=== PATIENT | female | born 2005 | race African-American/Black ===

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

== ENCOUNTER 2025-08-02 19:20 | Emergency (ER) | payer OTHER, MEDICAID, SELFPAY ==
[2025-08-02 19:31] VITALS: BP 120/68; PULSE 69; RESP 18; TEMP 37.2; O2SAT 100
--- NOTE | 2025-08-02 19:31 | ED.GENADULT ---
HPI - General Adult General Chief complaint: Extremity Injury, Lower Stated complaint: Right Toe Pain Time Seen by Provider: 08/02/25 19:31 Source: patient Mode of arrival: ambulatory Limitations: no limitations History of Present Illness HPI narrative: 19 yo F presents with pain to R great toe. Pt had ingrown toenal removed at [facility] 3 days ago. States they didn't give me any pain medication. Takin tylenol without relief of pain. Pt states last time i had a toenail removed they gave me 800mg ibuprofen. all systems reviewed and negative except as noted above. Related Data Allergies Allergy/AdvReac Type Severity Reaction Status Date / Time No Known Allergies Allergy Verified 08/02/25 19:21 [facility] Past Medical History Medical History No acute medical problems Family History Family History Other No acute medical problems Social History Social History Smoking status: Never smoker Second hand tobacco smoke exposure: No Living arrangements: with family Occupation/Education: student Comments At time of signature, agree with nursing past medical, surgical, social and family history. There is no relevant family history pertinent to the presenting complaint. Exam Narrative: GENERAL: This is a well-nourished, well-developed patient, in no apparent distress. HEAD: normocephalic, atraumatic. EYES: PERRL. Sclera clear/white. Vision is grossly intact. EARS: External ears normal NOSE: External nose normal NECK: Neck supple, non-tender without lymphadenopathy, masses or thyromegaly. CARDIOVASCULAR: Regular rate and rhythm without murmurs, gallops, or rubs. RESPIRATORY: Clear to auscultation. Breath sounds equal bilaterally. No wheezes, rales, or rhonchi. SKIN: warm, Dry, intact with no suspicious lesions or rash, good texture and turgor. NEURO: awake, alert, and oriented to person, place and time. There were no obvious focal neurologic abnormalities. EXTREMITIES: medial aspect R great toenail removed. healin well. no signs of infection. no drainage. Course Course Level of Care: Express Care Visit Vital Signs Vital signs: Reviewed Medical Decision Making MDM Narrative Medical decision making narrative: pt had ingrown toenail removed at another [facility] 3 days ago. Came to express care tonight for ibuprofen prescription. Discharge Plan Discharge Clinical Impression: Pain of right great toe Patient Disposition: Home Condition: Stable Instructions: Ingrown Nail (ED) Patient Language: [place] Prescriptions: New ibuprofen 800 mg tablet 800 mg PO Q8H PRN (Reason: pain) Qty: 30 0RF Follow-up/Referrals: PHYSICIAN,PACKAGE WORKER [Primary Care Provider, Internal Medicine] Stand Alone Forms: Work/School Release IP Time of Disposition: 19:37
== END 2025-08-02 19:40 | disposition home or self-care (01) ==
PROVIDERS: Emergency Provider Nurse Practitioner Family
DX: M79.674 Pain in right toe(s) (principal)
CPT/HCPCS: 99213; G0463